=== PATIENT | female | born 1990 | race Caucasian/White ===

== ENCOUNTER 2016-10-23 14:04 | Emergency (ER) | payer MEDICAID ==
[~2016-10-23] VITALS: Ht 157.5 cm; Wt 87.2 kg
[~2016-10-23 14:04] MED LIST: FLEXERIL10 MG PO; NEURONTIN100 MG PO; NORCO1 TA2 PO
[2016-10-23 15:24] LABS: BASOPHIL % 0.3 % (0-2); PLATELET COUNT 339 x10^3mcL (130-400); RED CELL DISTRIBUTION WIDTH 13.1 % (11.5-14.5)
[2016-10-23 15:31] LABS: microscopic required? YES; urine erythrocyte NEGATIVE (NEGATIVE)
[2016-10-23 15:40] LABS: CALCIUM 8.3 mg/dL (8.5-10.1); CARBON DIOXIDE 30.4 mmol/L (21-32); CHLORIDE SERUM 105 mmol/L (98-107); CREATININE SERUM 0.8 mg/dL (0.6-1.0); GFR1 > 60 mL/min; GLUCOSE SERUM 100 mg/dL (74-106); POTASSIUM SERUM 4.3 mmol/L (3.5-5.1); SODIUM SERUM 143 mmol/L (136-145)
[2016-10-23 15:44] LABS: ALBUMIN 3.6 g/dL (3.4-5.0); ALKALINE PHOSPHATASE 80 U/L (46-116); ALT/SGPT 21 U/L (14-59); AST/SGOT 15 U/L (15-37); BILIRUBIN TOTAL 0.4 mg/dL (0.20-1.00); LIPASE 158 IU/L (73-393); MAGNESIUM 1.7 mg/dL (1.8-2.4); TOTAL PROTEIN, SERUM 7.1 g/dL (6.4-8.2)
[2016-10-23 17:17] VITALS: BP 99/62
== END 2016-10-23 17:17 | disposition home or self-care (01) ==
LOC: ED 14:04
PROVIDERS: Emergency Medicine
DX: K29.70 Gastritis, unspecified, without bleeding (principal); R19.7 Diarrhea, unspecified
CPT/HCPCS: C9113; J2405; J7030

== ENCOUNTER 2016-12-13 12:23 | Emergency (ER) | payer MEDICAID ==
[~2016-12-13] VITALS: Ht 157.5 cm; Wt 87.5 kg
[2016-12-13 12:24] VITALS: BP 107/53
== END 2016-12-13 13:42 | disposition home or self-care (01) ==
LOC: ED 12:23
DX: J02.8 Acute pharyngitis due to other specified organisms (principal); H60.503 Unspecified acute noninfective otitis externa, bilateral

== ENCOUNTER 2016-12-19 11:45 | Emergency (ER) | payer MEDICAID ==
[~2016-12-19] VITALS: Ht 157.5 cm; Wt 85.3 kg
[2016-12-19 11:50] VITALS: BP 125/71
== END 2016-12-19 13:45 | disposition home or self-care (01) ==
LOC: ED 11:45
DX: J20.9 Acute bronchitis, unspecified (principal); S39.012A Strain of muscle, fascia and tendon of lower back, initial encounter; E66.9 Obesity, unspecified; F41.9 Anxiety disorder, unspecified; X58.XXXA Exposure to other specified factors, initial encounter; Y93.89 Activity, other specified; Y92.89 Other specified places as the place of occurrence of the external cause; Y99.8 Other external cause status
CPT/HCPCS: J1885

== ENCOUNTER 2017-02-12 08:55 | Emergency (ER) | payer MEDICAID ==
[~2017-02-12] VITALS: Ht 157.5 cm; Wt 86.6 kg
[2017-02-12 09:57] VITALS: BP 100/58
[2017-02-12 09:57] LABS: BASOPHIL % 0.5 % (0-2); PLATELET COUNT 294 x10^3mcL (130-400); RED CELL DISTRIBUTION WIDTH 13.2 % (11.5-14.5)
[2017-02-12 10:04] LABS: CALCIUM 8.7 mg/dL (8.5-10.1); CARBON DIOXIDE 25.8 mmol/L (21-32); CHLORIDE SERUM 104 mmol/L (98-107); CREATININE SERUM 0.7 mg/dL (0.6-1.0); GFR1 > 60 mL/min; GLUCOSE SERUM 92 mg/dL (74-106); POTASSIUM SERUM 4.1 mmol/L (3.5-5.1); SODIUM SERUM 137 mmol/L (136-145)
[2017-02-12 10:07] LABS: microscopic required? YES; urine erythrocyte NEGATIVE (NEGATIVE)
[2017-02-12 10:09] LABS: ALBUMIN 3.3 g/dL (3.4-5.0); ALKALINE PHOSPHATASE 95 U/L (46-116); ALT/SGPT 73 U/L (14-59); AST/SGOT 36 U/L (15-37); BILIRUBIN TOTAL 0.5 mg/dL (0.20-1.00); LIPASE 133 IU/L (73-393)
== END 2017-02-12 12:39 | disposition home or self-care (01) ==
LOC: ED 08:55
PROVIDERS: Emergency Medicine
DX: O21.0 Mild hyperemesis gravidarum (principal); K29.70 Gastritis, unspecified, without bleeding; Z3A.01 Less than 8 weeks gestation of pregnancy
CPT/HCPCS: 83880; J2405; J3490; J7030

== ENCOUNTER 2017-02-17 08:23 | Emergency (ER) | payer MEDICAID ==
[~2017-02-17] VITALS: Ht 157.5 cm; Wt 86.2 kg
[2017-02-17 09:00] LABS: BASOPHIL % 0.3 % (0-2); PLATELET COUNT 333 x10^3mcL (130-400); RED CELL DISTRIBUTION WIDTH 13.1 % (11.5-14.5)
[2017-02-17 09:10] LABS: CARBON DIOXIDE 24.8 mmol/L (21-32); CHLORIDE SERUM 103 mmol/L (98-107); CREATININE SERUM 0.8 mg/dL (0.6-1.0); GFR1 > 60 mL/min; GLUCOSE SERUM 94 mg/dL (74-106); SODIUM SERUM 139 mmol/L (136-145)
[2017-02-17 09:16] LABS: ALBUMIN 3.6 g/dL (3.4-5.0); ALKALINE PHOSPHATASE 105 U/L (46-116); ALT/SGPT 86 U/L (14-59); AST/SGOT 36 U/L (15-37); LIPASE 134 IU/L (73-393); TOTAL PROTEIN, SERUM 7.8 g/dL (6.4-8.2)
[2017-02-17 13:06] VITALS: BP 101/60
== END 2017-02-17 13:06 | disposition home or self-care (01) ==
LOC: ED 08:23
PROVIDERS: Emergency Medicine
DX: O21.0 Mild hyperemesis gravidarum (principal); K59.00 Constipation, unspecified; E86.0 Dehydration; Z3A.01 Less than 8 weeks gestation of pregnancy
CPT/HCPCS: 82962; J2405; J7030; Q0092

== ENCOUNTER 2017-02-25 18:09 | Emergency (ER) | payer MEDICAID ==
[2017-02-25 21:49] LABS: BASOPHIL % 0.4 % (0-2); PLATELET COUNT 322 x10^3mcL (130-400); RED CELL DISTRIBUTION WIDTH 13.1 % (11.5-14.5)
[2017-02-25 21:55] LABS: CARBON DIOXIDE 28.1 mmol/L (21-32); CHLORIDE SERUM 103 mmol/L (98-107); CREATININE SERUM 0.7 mg/dL (0.6-1.0); GFR1 > 60 mL/min; GLUCOSE SERUM 90 mg/dL (74-106); POTASSIUM SERUM 4.1 mmol/L (3.5-5.1); SODIUM SERUM 138 mmol/L (136-145)
[2017-02-25 22:00] LABS: ALBUMIN 3.5 g/dL (3.4-5.0); ALKALINE PHOSPHATASE 92 U/L (46-116); ALT/SGPT 46 U/L (14-59); AST/SGOT 24 U/L (15-37); BILIRUBIN TOTAL 0.51 mg/dL (0.20-1.00); LIPASE 145 IU/L (73-393); TOTAL PROTEIN, SERUM 7.5 g/dL (6.4-8.2)
[2017-02-26 00:05] VITALS: BP 91/64
== END 2017-02-26 00:05 | disposition home or self-care (01) ==
LOC: ED 18:09
PROVIDERS: Emergency Medicine
DX: O21.0 Mild hyperemesis gravidarum (principal); O26.891 Other specified pregnancy related conditions, first trimester; R10.84 Generalized abdominal pain; Z3A.08 8 weeks gestation of pregnancy; Z79.899 Other long term (current) drug therapy
CPT/HCPCS: 36415; J7030

== ENCOUNTER 2017-05-18 17:05 | Emergency (ER) | payer MEDICAID ==
[~2017-05-18] VITALS: Ht 157.5 cm; Wt 86.2 kg
[2017-05-18 20:11] VITALS: BP 103/75
== END 2017-05-18 20:11 | disposition home or self-care (01) ==
LOC: ED 17:05
DX: O99.512 Diseases of the respiratory system complicating pregnancy, second trimester (principal); Z3A.20 20 weeks gestation of pregnancy

== ENCOUNTER 2018-07-30 07:52 | Emergency (ER) | payer MEDICAID ==
[~2018-07-30] VITALS: Ht 160 cm; Wt 93.9 kg
[2018-07-30 07:55] VITALS: Ht 160 cm; Wt 93.9 kg
[2018-07-30 09:45] VITALS: BP 111/69
== END 2018-07-30 09:46 | disposition home or self-care (01) ==
LOC: ED 07:52
DX: N30.00 Acute cystitis without hematuria (principal); F41.9 Anxiety disorder, unspecified
CPT/HCPCS: 87804; J0696; Q0092; Q0162

== ENCOUNTER 2018-12-01 21:34 | Emergency (ER) | payer MEDICAID ==
[~2018-12-01] VITALS: Ht 160 cm; Wt 92.1 kg
[2018-12-01 21:40] VITALS: Ht 160 cm; Wt 92.1 kg
[2018-12-02 00:17] VITALS: BP 138/78
== END 2018-12-02 00:17 | disposition home or self-care (01) ==
LOC: ED 21:34
DX: S61.432A Puncture wound without foreign body of left hand, initial encounter (principal); S61.431A Puncture wound without foreign body of right hand, initial encounter; F41.9 Anxiety disorder, unspecified; Z98.890 Other specified postprocedural states; W55.01XA Bitten by cat, initial encounter; Y93.89 Activity, other specified; Y92.89 Other specified places as the place of occurrence of the external cause; Y99.8 Other external cause status
CPT/HCPCS: 90715